=== PATIENT | female | born 1990 | race Two or more races ===

== ENCOUNTER → 2024-02-29 14:09 | Outpatient (REF) | payer BC, SELFPAY | LOC: RAD 14:09 | PROVIDERS: ATTENDING PHYSICIAN Podiatrist; FAMILY PHYSICIAN Internal Medicine | DX: S92.351D Displaced fracture of fifth metatarsal bone, right foot, subsequent encounter for fracture with routine healing (principal) | CPT/HCPCS: 93971 ==

== ENCOUNTER → 2024-05-13 18:41 | Outpatient (REF) | payer BC, SELFPAY | LOC: MRI 18:41 | PROVIDERS: ATTENDING PHYSICIAN Podiatrist; FAMILY PHYSICIAN Internal Medicine | DX: M76.71 Peroneal tendinitis, right leg (principal) | CPT/HCPCS: 73721 ==